=== PATIENT | male | born 1960 | race African-American/Black ===

== ENCOUNTER 2017-04-14 05:42 | Emergency (ER) | payer OTHER ==
[~2017-04-14] VITALS: Ht 188 cm; Wt 100.0 kg
[2017-04-14 05:52] VITALS: Ht 188 cm; Wt 100.0 kg
[2017-04-14] MEDS ORDERED: SOD CHLORIDE 0.9% 1,000 ML IV STA (06:01)
[2017-04-14] MEDS ORDERED: HYDR-3011 PO (06:24)
--- NOTE | 2017-04-14 06:29 | ERD ---
ER Documentation Chief Complaint Date/Time DATE: 04/14/17 TIME: 06:24 Chief Complaint bib RA with c/o neck pain HPI This is a 57-year-old -[place] male that was brought into the emergency department by [employer] after he was found intoxicated walking around on the street. The patient has no recollection of falling [employer] as he states he believes he was phoning a taxi and accidentally dialed 911. He stated he been drinking beer and [place] vodka but states he feels as though he has sobered up as his last consumption of alcohol was roughly 12 hours prior to arrival and he denied any blunt or penetrating had chest or abdominal trauma. Patient presented in a neck brace as he stated 1 year ago he underwent cervical spinal fusion and has been wearing a brace since that time. Contrary to the triage note the patient does not complain of neck pain. He states he is thirsty. He denies any nausea vomiting abdominal pain. He had denies any hemoptysis hematemesis or melanotic stools. He denies any suicidal homicidal thoughts or ideation ROS All systems reviewed and are negative except as per history of present illness. Medications Home Meds Reported Medications Hydroxyzine Hcl* (Hydroxyzine Hcl*) 25 Mg Tablet, 25 MG PO DAILY Y for ITCHING, #30 TAB 04/14/17 Allergies Allergies: Coded Allergies: No Known Allergy (Unverified , 04/14/17) PMhx/Soc History of Surgery: Yes (neck sx) Anesthesia Reaction: No Hx Alcohol Use: Yes (daily) Hx Substance Use: Yes (weed) Hx Tobacco Use: Yes Smoking Status: Current every day smoker Physical Exam Vitals Vital Signs Date Time Temp Pulse Resp B/P Pulse Ox O2 Delivery O2 Flow Rate FiO2 04/14/17 05:52 99.4 104 19 177/107 100 Physical Exam Constitutional:Well-developed. Well-nourished. HEENT:Normocephalic. Atraumatic.Pupils were equal round reactive to light. Moist mucous membranes.No tonsillar exudates. Neck: No nuchal rigidity. No lymphadenopathy. No posterior cervical spine tenderness or step-offs. Surgical incision scar which is clean dry and intact and well-healed on the posterior aspect of the neck extending from C4-C7 Respiratory: Not using accessory muscles of respiration.Lungs were clear to auscultation bilaterally. No rhonchi. No rales. No wheezing. Cardiovascular: Regular rate regular rhythm.No murmurs. No rubs were appreciated.S1, S2 normal. Distal pulses are palpable 2+ bilaterally. GI: Abdomen was soft. Nontender. Non Distended. No pulsatile abdominal masses or bruits. No rebound. No guarding. Bowel sounds were present and normal. Muscle skeletal: Full range of motion of both the upper and lower extremities bilaterally.Normal muscle tone.No assymetrical calf tenderness or swelling. Skin: No petechia, no purpura. No lesions on the palms or the soles of the feet. No maculopapular rash. NEURO: Patient was alert, awake, orientated x3.No facial droop.Speech was not slurred and gait was not ataxic that patient did smell of alcohol. No focal neurological deficits. Result Diagram: 04/14/17 0634 04/14/17 0634 Results 24 hrs Laboratory Tests Test 04/14/17 06:34 White Blood Count 10.310^3/ul Red Blood Count 4.7710^6/ul Hemoglobin 13.7g/dl Hematocrit 42.8% Mean Corpuscular Volume 89.7fl Mean Corpuscular Hemoglobin 28.7pg Mean Corpuscular Hemoglobin Concent 32.0g/dl Red Cell Distribution Width 13.1% Platelet Count 32496^3/UL Mean Platelet Volume 10.1fl Neutrophils % 66.7% Lymphocytes % 23.2% Monocytes % 9.5% Eosinophils % 0.0% Basophils % 0.3% Nucleated Red Blood Cells % 0.0/100WBC Neutrophils # 6.910^3/ul Lymphocytes # 2.410^3/ul Monocytes # 1.010^3/ul Eosinophils # 0.010^3/ul Basophils # 0.010^3/ul Nucleated Red Blood Cells # 0.010^3/ul Sodium Level 147mmol/L Potassium Level 3.7mmol/L Chloride Level 107mmol/L Carbon Dioxide Level 26mmol/L Anion Gap 18 Blood Urea Nitrogen 23mg/dl Creatinine 0.94mg/dl Glucose Level 141mg/dl Calcium Level 9.9mg/dl Total Bilirubin 1.4mg/dl Direct Bilirubin 0.00mg/dl Indirect Bilirubin 1.4mg/dl Aspartate Amino Transf (AST/SGOT) 50IU/L Alanine Aminotransferase (ALT/SGPT) 67IU/L Alkaline Phosphatase 65IU/L Total Protein 9.1g/dl Albumin 5.1g/dl Globulin 4.00g/dl Albumin/Globulin Ratio 1.27 Ethyl Alcohol Level < 10.0mg/dl Current Medications Medications (Trade) Dose Ordered Sig/Maryam Route PRN Reason Start Time Stop Time Status Last Admin Dose Admin Sodium Chloride (NS) 1,000 ml @ 1,000 mls/hr Q1H STAT IV 04/14/17 06:01 04/14/17 07:00 DC 04/14/17 06:37 Procedures/MDM This patient presented to the emergency department with acute alcohol intoxication several hours prior to arrival and no signs of alcohol withdrawal symptoms or impending delirium tremors. There is no signs of blunt or penetrating trauma. The patient had IV access was established by nursing staff and was treated with IV fluids and p.o. thiamine. The patient had no signs of severe anemia or electrolyte abnormalities other than transaminitis thought to be secondary to his alcohol use. His serum ethanol was not elevated and he stated he felt comfortable being discharged home The patient was discharged home in fair condition. They were instructed to return to the emergency department at any time if there was any worsening of their condition. The patient stated they would follow up with their PCP in the next 24-48 hours to initiate a suitable medication regimen under the care of their PCP as well as to allow their PCP to monitor any drug reactions. The patient was discharged home with prescriptions after they gave informed consent to the new medication. They were also fully informed by myself on the adverse effects and adverse drug interactions in order to provide adequate safeguards to prevent possible adverse reactions to medications. Departure Diagnosis: Primary Impression: Alcohol withdrawal Complication of substance-induced condition: uncomplicated Qualified Code: F10.230 - Alcohol withdrawal syndrome without complication Condition: Fair NANDA TIDWELL Apr 14, 2017 06:29
[2017-04-14 06:50] LABS: BASOPHILS % 0.3 % (0.0-2.0); HEMATOCRIT 42.8 % (42.0-52.0); HEMOGLOBIN 13.7 g/dl (14.0-18.0); LYMPHOCYTES # 2.4 10^3/ul (0.8-2.9); LYMPHOCYTES % 23.2 % (15.0-51.0); MEAN CORPUSCULAR HEMOGLOBIN 28.7 pg (29.0-33.0); MEAN CORPUSCULAR VOLUME 89.7 fl (82.0-101.0); MEAN PLATELET VOLUME 10.1 fl (7.4-10.4); MONOCYTES % 9.5 % (0.0-11.0); NEUTROPHIL # 6.9 10^3/ul (1.6-7.5); NEUTROPHILS % 66.7 % (39.0-77.0); PLATELET COUNT 203 10^3/UL (140-415); RED BLOOD COUNT 4.77 10^6/ul (4.70-6.10); RED CELL DISTRIBUTION WIDTH 13.1 % (11.5-14.5); WHITE BLOOD COUNT 10.3 10^3/ul (4.8-10.8)
[2017-04-14 07:29] LABS: ALANINE AMINOTRANSFERASE 67 IU/L (13-69); ALBUMIN 5.1 g/dl (3.3-4.9); ALBUMIN/GLOBULIN RATIO 1.27; ALKALINE PHOSPHATASE 65 IU/L (42-121); ANION GAP 18 (8-16); ASPARTATE AMINO TRANSFERASE 50 IU/L (15-46); BILIRUBIN,INDIRECT 1.4 mg/dl (0-1.1); BILIRUBIN,TOTAL 1.4 mg/dl (0.2-1.3); BLOOD UREA NITROGEN 23 mg/dl (7-20); CALCIUM 9.9 mg/dl (8.4-10.2); CARBON DIOXIDE 26 mmol/L (21-31); CHLORIDE 107 mmol/L (97-110); CREATININE 0.94 mg/dl (0.61-1.24); GLUCOSE 141 mg/dl (70-220); POTASSIUM 3.7 mmol/L (3.5-5.1); SODIUM 147 mmol/L (135-144); TOTAL PROTEIN 9.1 g/dl (6.1-8.1)
[2017-04-14 07:30] LABS: ETHANOL < 10.0 mg/dl
[2017-04-14] MEDS ORDERED: THIAMINE 100 MG TAB PO ONE (08:30)
[2017-04-14 08:52] VITALS: BP 156/95; PULSE 89; RESP 17; TEMP 98.5
== END 2017-04-14 09:05 | disposition home or self-care (01) ==
LOC: E/R 05:42
DX: F10.230 Alcohol dependence with withdrawal, uncomplicated (principal); F17.210 Nicotine dependence, cigarettes, uncomplicated
CPT/HCPCS: 80053; 80306; 85025; J7030; Z7502; Z7610